=== PATIENT | male | born 1955 | race Caucasian/White ===

== ENCOUNTER 2022-08-28 18:21 | Emergency (ER) | payer MEDICARE, SELFPAY ==
[2022-08-28 18:22] VITALS: BP 143/117; PULSE 117; RESP 20; TEMP 36.8; O2SAT 95; BMI 40.6
--- NOTE | 2022-08-28 18:27 | PC.NURSE ---
PT IS IN TRIAGE ROOM, TOOK VITALS SIGN AND HT, WT FOR NURSE.. CHARGE NURSE IN THERE NOW SPEAKING WITH PT TO FIND OUT WHATS GOING ON
[2022-08-28 18:45] VITALS: BP 102/70; PULSE 103
--- NOTE | 2022-08-28 18:46 | PC.NURSE ---
RETOOK PT BP, LET HIM KNOW WE WERE WORKING TO GET DISCHARGES OUT AND GET HIM BACK [facility]
--- NOTE | 2022-08-28 18:50 | HMH.EDGENADL ---
Discharge Plan Disposition Chief Complaint: PAIN Referrals Follow up/Referrals: Skip Samuels [Primary Care Provider] - See instructions Clinical Impressions Clinical Impression: Acute pain of left hip Discharge ED Provider: Guzman Emmanuel General Adult HPI General Chief complaint: PAIN Stated complaint: pulled groin muscle Time Seen by Provider: 08/28/22 18:50 History of Present Illness HPI narrative: Patient is a 66-year-old male presenting after he pulled my left groin . Patient states that he was changing a tire this happened Friday and Friday and he strained his left groin and subsequently felt a pop and has been unable to lift his left hip and move it with internal/external rotation has been having difficulty with bearing weight as well. Patient has had significant swelling and bruising down his groin area as well. [facility] Disclaimer: The information contained in this section may have been updated after the patient was seen, as this information can be updated by other users. Social History Smoking Status: Never smoker alcohol intake: never current occupational status: other Travel in the last 8 weeks: None ROS Obtained: Yes All systems reviewed & no additional complaints except as documented Physical Exam General General appearance: alert Respiratory Respiratory exam: Present normal lung sounds bilaterally; Absent respiratory distress Cardiovascular Cardiovascular exam: Present regular rate; Absent tachycardia Neurological Exam Neurological exam: Present alert and oriented X3 Medical Decision Making Erick Inquiry Pt receiving controlled substance: No Vital Signs: 08/28/22 18:45 08/28/22 18:22 Temperature 98.3 F Temperature Source Oral Pulse Rate 103 H Pulse Rate [Left Radial] 117 H Respiratory Rate 20 Blood Pressure 102/70 L Blood Pressure [Right Arm] 143/117 H Blood Pressure Mean [Right Arm] 125 Blood Pressure Source [Right Arm] Automatic Cuff Blood Pressure Position [Right Arm] Sitting 02 Sat by Pulse Oximetry 95 Oxygen Delivery Method Room Air Orders (Tests/Meds): ORDERS Category Date Time Status Hip XR left minimum 2 views [XR hip LT 2-3V w/pelvis] Exams 08/28/22 18:52 Completed Stat Medical Decision Narrative: We will get plain films on this gentleman however he is in the triage room currently and I cannot get a good examination and it was able to see some significant ecchymosis while he still has his shorts on. Once room is available to get better examination will reassess. Patient was transitioned to Dr. Devaughn at 8 PM and still is awaiting a room for further examination. Critical Care Time Critical Care Time Critical Care Time: No Attestation: On , the high probability of a clinically significant, sudden or life threatening deterioration of the following system(s) required my full and direct attention, intervention and personal management. The time I documented below is in addition to time spent performing reported procedures but includes the following listed in this critical care notation.
--- NOTE | 2022-08-28 18:51 | PC.NURSE ---
DR SKELTON IS SEEING PT IN TRIAGE
--- NOTE | 2022-08-28 18:52 | XR_ITS ---
PROCEDURE INFORMATION: Exam: XR Left Hip Exam date and time: 08/28/2022 6:59 PM Age: 66 years old Clinical indication: Hip pain; Left hip; Additional info: Left hip pain TECHNIQUE: Imaging protocol: Radiologic exam of the left hip. Views: 2 or 3 views hip with pelvis when performed. COMPARISON: No relevant prior studies available. FINDINGS: Tubes, catheters and devices: Stimulator unit projects in the right mid abdominal region. Bones/joints: Osteopenia. No gross fractures are identified. Sensitivity is limited by positioning, with suboptimal internal rotation of the hip on the AP view. No dislocation. Lumbar laminectomy and fusion without gross hardware complication. Soft tissues: No gross soft tissue abnormalities. IMPRESSION: 1. No acute findings. 2. Exam sensitivity limited by positioning.
--- NOTE | 2022-08-28 19:15 | PC.NURSE ---
UPDATED PT STILL WAITING FOR A ROOM TO DISCHARGE AND LET ME THEM KNOW WE HAVE TO KEEP ONE ROOM OPEN AT ALL TIMES INCASE OF EMS OR ETC, PT ALSO JUST ARRIVED BACK TO TRIAGE ROOM FROM XRAY
--- NOTE | 2022-08-28 20:09 | CT_ITS ---
PROCEDURE INFORMATION: Exam: CT Abdomen And Pelvis With Contrast Exam date and time: 08/28/2022 9:21 PM Age: 66 years old Clinical indication: Abdominal pain; Prior surgery; Surgery date: 6+ months; Surgery type: Lumbar TECHNIQUE: Imaging protocol: Computed tomography of the abdomen and pelvis with contrast. Radiation optimization: All CT scans at this facility use at least one of these dose optimization techniques: automated exposure control; mA and/or kV adjustment per patient size (includes targeted exams where dose is matched to clinical indication); or iterative reconstruction. Contrast material: ISOVUE; Contrast volume: 75 ml; Contrast route: IV; REPORTING DATA: Count of CT and Cardiac NM exams in prior 12 months: This patient has received 0 known CTs and 0 known cardiac nuclear medicine studies in the 12 months prior to the current study. COMPARISON: CR XR HIP LT 2-3V W/PELVIS 08/28/2022 6:59 PM FINDINGS: Lungs: Granulomatous calcification in the peripheral right lung base. Mild dependent atelectasis in the lung bases. Heart: Heart size normal. Mild coronary artery calcification. Mediastinal space: The visualized distal esophagus is largely contracted without gross abnormality. Liver: Granulomatous calcification in the liver. Normal contour. No mass lesions. No intrahepatic biliary ductal dilatation. Gallbladder and bile ducts: Normal. No calcified stones. No ductal dilation. Pancreas: Moderate fatty atrophy of the pancreas without acute abnormality. No pancreatic ductal dilatation. Spleen: Splenomegaly measuring 15.8 cm. No focal splenic lesions. Adrenal glands: Normal. No adrenal mass. Kidneys and ureters: No acute abnormalities. No hydronephrosis or hydroureter. No urinary tract stones are identified. There is a low-density circumscribed left renal cortical lesion suggesting renal cyst for which no further imaging evaluation is required. Stomach and bowel: The stomach is largely contracted. The small bowel is nondilated with no gross abnormality. No acute colonic abnormalities. Appendix: The appendix is normal in caliber and demonstrates no evidence of appendicitis. Intraperitoneal space: No free fluid or air. Vasculature: No acute process. No abdominal aortic aneurysm. Lymph nodes: No adenopathy. Urinary bladder: The rightward dome of the bladder protrudes slightly into the neck of the fatty right inguinal hernia. Reproductive: Mildly enlarged prostate. Bones/joints: L2-S1 laminectomy and fusion. Left S1 pedicle screw is broken at the midportion. Chronic appearing severe inferior endplate compression deformity of L1 with moderate posteroinferior chronic spurring or retropulsion measuring up to 5 mm AP and contributing to moderate-severe canal stenosis. Severe bilateral foraminal stenosis L1-L2. There is also left foraminal stenosis which is moderate-severe at L2-L3 and L3-L4, and moderate at L5-S1. There is right foraminal stenosis which is moderate at L2-L3, mild at L3-L4 and L4-L5, and moderate-severe at L5-S1. Bilateral bridging osteophytes across the anterior SI joints bilaterally. No hip fracture. Soft tissues: Spinal stimulator unit in the posterior right lower back subcutaneous fat with dorsal stimulator leads in the lower thoracic spinal canal, without gross hardware complication. Asymmetric muscular swelling involving the left pectineus and adductor musculature in the anteromedial left hip, favor traumatic muscular edema, with minimal hyperdense 3 x 1 cm hematoma along the deep margin of the proximal gracilis. If there is no history of trauma or there are clinical findings suspicious for infection, consider the pos
--- NOTE | 2022-08-28 20:09 | CT_ITS ---
PROCEDURE INFORMATION: Exam: CT Left Lower Extremity Without Contrast, Hip Exam date and time: 08/28/2022 9:18 PM Age: 66 years old Clinical indication: Pain; Hip; Left; Patient HX: PT felt a pop in his groin after he bent over a few days ago TECHNIQUE: Imaging protocol: CT of the left lower extremity without contrast was performed. Exam focused on the hip. Radiation optimization: All CT scans at this facility use at least one of these dose optimization techniques: automated exposure control; mA and/or kV adjustment per patient size (includes targeted exams where dose is matched to clinical indication); or iterative reconstruction. REPORTING DATA: Count of CT and Cardiac NM exams in prior 12 months: This patient has received 0 known CTs and 0 known cardiac nuclear medicine studies in the 12 months prior to the current study. COMPARISON: CR XR HIP LT 2-3V W/PELVIS 08/28/2022 6:59 PM FINDINGS: Bones/joints: No fracture. No dislocation. Soft tissues: Muscular swelling involving the left adductor compartment musculature in the anteromedial left hip suggesting traumatic muscular edema versus myositis. Very small 3 x 1 x 1.5 cm intramuscular hematoma suspected between the proximal gracilis and proximal left adductor longus musculature, estimated volume 2.5 mL. Small fatty left inguinal hernia without bowel herniation or features of strangulation. Vasculature: Mild calcific atherosclerosis. Lymph nodes: No adenopathy. IMPRESSION: 1. No hip fracture. 2. Changes in the adductor compartment musculature most consistent with traumatic muscular swelling/edema with a small intramuscular hematoma of about 2.5 mL volume. Correlate clinically to exclude evidence of infection/myositis.
[2022-08-28 20:30] VITALS: BP 154/116; PULSE 108; RESP 18; O2SAT 95
[2022-08-28 20:48] LABS: Microscopic, Urine URINE MICROSCOPIC (MICROSCOPIC)
[2022-08-28 20:50] LABS: Basophils # 0.1 K/mm3 (0-0.2); Basophils % 1.1 % (0.1-2.0); Eosinophils # 0.3 K/mm3 (0.0-0.4); Eosinophils % 2.3 % (0.1-12.0); Hematocrit 46.8 % (42.0-52.0); Hemoglobin 14.9 g/dL (14.1-18.0); Lymphocytes # 2.3 K/mm3 (0.7-4.5); Lymphocytes % 21.3 % (10-50); Mean Corpuscular HGB Conc 31.8 g/dL (31.8-35.4); Mean Corpuscular Hemoglobin 29.9 pg (27.0-31.2); Mean Corpuscular Volume 94.1 fl (80-94); Mean Platelet Volume 8.7 fl (7.4-10.4); Monocytes # 0.5 K/mm3 (0.1-1.0); Neutrophils # 7.5 K/mm3 (1.8-7.8); Neutrophils % 70.4 % (37.0-80.0); Platelet Count 289 K/mm3 (142-424); Red Blood Count 4.97 M/mm3 (4.60-6.20); Red Cell Distribution Width 15.1 % (11.5-17.5); White Blood Count 10.6 K/mm3 (4.8-10.8)
[2022-08-28 20:51] LABS: Appearance,Urine CLEAR (Clear); Bilirubin,Urine Negative (Negative); Blood, Urine Negative (Negative); Color,Urine YELLOW (Yellow); Glucose,Urine (UA) Negative (Negative); Ketones,Urine Negative (Negative); Leukocyte Esterase,Urine Negative (Negative); Nitrate,Urine Negative (Negative); Protein,Urine Negative (Negative); Specific Gravity, Urine 1.025 (1.005-1.030)
[2022-08-28 20:55] LABS: Alanine Aminotransferase 37 U/L (12-78); Albumin Level 4.2 g/dl (3.5-5.0); Albumin/Globulin Ratio 1.4 (1.1-1.8); Alkaline Phosphatase 85 U/L (38-126); Anion Gap 15.2 mEq/L (5-15); Aspartate Amino Transferase 46 U/L (17-59); Bilirubin,Total 0.6 mg/dl (0.2-1.3); Blood Urea Nitrogen 31 mg/dl (9-20); Calcium 8.5 mg/dl (8.4-10.2); Carbon Dioxide 27 mmol/L (22.0-30.0); Chloride 99 mmol/L (98-107); Creatine Kinase 250 U/L (55-170); Creatinine Clearance Estimated 140 mL/min (50-200); Estimated Glomerular Filt Rate 84 ml/min (>60); GFR (African American) 102 ML/MIN (>60); Globulin 3.1 g/dL (1.3-3.2); Glucose 191 mg/dl (74-100); Potassium 4.2 mmoL/L (3.5-5.1); Sodium 137 mmol/L (136-145); Total Protein,Serum 7.3 g/dl (6.3-8.2)
[2022-08-28 20:56] LABS: INR 0.93 (0.9-1.1); Prothrombin Time 10.1 seconds (10.1-12.5)
[2022-08-28 21:00] VITALS: BP 144/78; PULSE 106; RESP 20; O2SAT 96
[2022-08-28 21:30] VITALS: BP 147/70; PULSE 104; RESP 20; O2SAT 95
[2022-08-28 21:49] LABS: Squamous Epithelial Cell,Urine Occasional #/hpf (0-5)
[2022-08-28 23:45] VITALS: BP 147/91; PULSE 104; RESP 16; TEMP 36.7; O2SAT 98
--- NOTE | 2022-08-28 23:45 | HMH.EDGENADL ---
Discharge Plan Disposition Patient Disposition: Home, Self-Care Chief Complaint: PAIN Referrals Follow up/Referrals: Skip Samuels [Primary Care Provider] - See instructions Clinical Impressions Clinical Impression: Acute pain of left hip, Adductor tendinitis of left hip, Intramuscular hematoma Instructions Patient Instructions: DI for Acute Pain -- Adult Discharge ED Provider: Guzman Emmanuel General Adult HPI General Chief complaint: PAIN Stated complaint: pulled groin muscle Time Seen by Provider: 08/28/22 18:50 Mode of Arrival: Ambulatory Source of Information: Patient, Spouse and Medical Record Limitations: No Limitations Description of Symptoms (Recalled from ER Triage Doc. by RN): c/o left groin bruising that occured last week from dragging his foot. He bent over a few days ago to get a bottle of water and heard his groin pop. Has had pain there after History of Present Illness HPI narrative: lt groin bruising has hx of nonwt bearing except with walker heard pop Onset (ago): day(s) Location: left and lower extremity Severity: moderate Associated symptoms: denies other symptoms Related Data Allergies Allergy/AdvReac Type Severity Reaction Status Date / Time Unable to Assess Allergy Verified 08/28/22 20:32 [facility] Disclaimer: The information contained in this section may have been updated after the patient was seen, as this information can be updated by other users. Social History (Updated 08/28/22 @ 19:50 by Guzman Emmanuel MD) Smoking Status: Never smoker alcohol intake: never current occupational status: other Travel in the last 8 weeks: None ROS Obtained: Yes All systems reviewed & no additional complaints except as documented Physical Exam General General appearance: alert Head Head exam: normocephalic Eye Eye exam: Present PERRL and EOMI ENT ENT exam: Present mucous membranes moist Neck Neck exam: Present trachea midline Respiratory Respiratory exam: Absent respiratory distress Cardiovascular Cardiovascular exam: Present regular rate Abdominal Exam Abdominal exam: Present soft exam: Present other (no scrotal swelling and no evid of perineal infection) Extremities Exam Extremities exam: Absent tenderness Back Exam Back exam: Present tenderness Neurological Exam Neurological exam: Present alert and CN II-XII intact Skin Skin exam: Present other (ecchymosis lt upper thigh - no clinicsal evid of dvt ) Lymphatic Lymphatic Findings: no adenopathy Medical Decision Making Medical Records Medical records reviewed: Yes I reviewed the patient's medical records. Erick Inquiry Pt receiving controlled substance: No Vital Signs: 08/28/22 18:45 08/28/22 18:22 08/28/22 20:30 Temperature 98.3 F Temperature Source Oral Pulse Rate 103 H 108 H Pulse Rate [Left Radial] 117 H Respiratory Rate 20 18 Blood Pressure 102/70 L 154/116 H Blood Pressure [Right Arm] 143/117 H Blood Pressure Mean 127 Blood Pressure Mean [Right Arm] 125 Blood Pressure Source [Right Arm] Automatic Cuff Blood Pressure Position [Right Arm] Sitting 02 Sat by Pulse Oximetry 95 95 Oxygen Delivery Method Room Air 08/28/22 21:00 08/28/22 21:30 Temperature Temperature Source Pulse Rate 106 H 104 H Pulse Rate [Left Radial] Respiratory Rate 20 20 Blood Pressure 144/78 H 147/70 H Blood Pressure [Right Arm] Blood Pressure Mean 100 95 Blood Pressure Mean [Right Arm] Blood Pressure Source [Right Arm] Blood Pressure Position [Right Arm] 02 Sat by Pulse Oximetry 96 95 Oxygen Delivery Method Lab Data Lab results reviewed: Yes I reviewed the patient's lab results. Lab Results 08/28/22 20:38: WBC 10.6, RBC 4.97, Hgb 14.9, Hct 46.8, MCV 94.1 H, MCH 29.9, MCHC 31.8, RDW 15.1, Plt Count 289, MPV 8.7, Neut % (Auto) 70.4, Lymph % (Auto) 21.3, Haines % (Auto) 5.0, Eos % (Auto) 2.3, Baso % (Auto) 1.1, Neut # (Auto) 7.5, Lymph # (Auto) 2.3, Haines # (Auto) 0.5, Eos # (Au
== END 2022-08-28 23:54 | disposition home or self-care (01) ==
PROVIDERS: Emergency Medicine; Emergency Provider Student in an Organized Health Care Education/Training Program; PCP Family Medicine
DX: X50.1XXA Overexertion from prolonged static or awkward postures, initial encounter; S70.02XA Contusion of left hip, initial encounter; S76.212A Strain of adductor muscle, fascia and tendon of left thigh, initial encounter
CPT/HCPCS: 73502; 73700; 74177; 80053; 81001; 82550; 85025; 85610; 99284; 99285; Q9967

== ENCOUNTER 2024-12-15 12:08 | Emergency (ER) | payer MEDICARE, SELFPAY ==
[2024-12-15 12:10] VITALS: BP 103/66; PULSE 117; RESP 20; TEMP 36.9; O2SAT 98; BMI 42.5
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
[2024-12-15] MEDS: OXYCODONE 10MG W/APAP 325MG TABLET 1 EACH PO (12:33)
--- OUTSIDE RECORDS SUMMARY | 2024-12-15 12:33 | XMS_ITS | Encounter Summary ---
Author Organization [employer] ([place], [place], [place], [place]) Address [address] [place] [address] Care Team Providers Care Ccna Name Role Phone Unavailable Primary Care Provider Unavailabl e Encounter Details Date Type Department Care Team (Late st Contact Info) Description 05/24/2020 Transcribed Document [facility] [place] Family Medicine [facility] [place] [address] ProviderAntonino MD [address] [place] [address] [id number] Social History Tobacco Use Types Packs/Day Years Used Date Smoking Tobacco: Never Assessed Sex and Gender Information Value Date Recorded Sex Assigned at Not on file Legal Sex Male 2:44 PM CDT Gender Identity Not on file Sexual Orientation Not on file documented as of this encounter Miscellaneous Notes * Cerner Conversion Note - Antonino ProviderMD - 05/24/2020 12:48 PM OPTOMETRY DOCTOR Patient: LUCINDA GONGORA Age: 64 Years Sex: Male : 1955 FOLLOW-UP DATE OF SERVICE: 04/26/2020 CHIEF COMPLAINT: Left-sided low back pain. HISTORY OF PRESENT ILLNESS: The patient is a 64-year-old male who returns to the clinic today with a 25-year history significant for back pain without significant radiation into the lower extremities at this time. The patient has a history of spinal cord stimulator implantation for the lower extremity pain. The patient states that he is doing well with the stimulator at this time. He describes his pain level today as an 8/10 on the numerical pain scale rating. His pain is worse with physical activity, movement, walking and standing. He does get relief with resting, recumbency and medication use from our facility. He is reporting 50% pain relief at this time with the use of MS Contin 30 mg one at bedtime, Percocet 10/325 mg four times daily dosing, Gabapentin 800 mg three times daily dosing, Lactulose 10 g/15 mL twice daily dosing, Robaxin 750 mg four times daily dosing. Nursing intake is reviewed and noted on today's visit this individual is currently 6'0 and weighs 300 lb. HISTORY: Allergies: Sulfa medication, Bactrim. Social History: Marital status: Single. Current work status: The patient does not report occupation at this time. Current tobacco use: Denies. Illicit drug use: Denies. Alcohol use: Denies. Caffeine use: Not reported. Past Medical History: Osteoarthritis. Asthma. Hypertension. Past Surgical History: Cataract surgery. Spinal surgery of the lumbar spine. Spinal surgery of the cervical spine. Spinal cord stimulator trial and subsequent implant. Past Family History: Rheumatoid arthritis. REVIEW OF SYSTEMS: The patient's ten system Review of Systems was reviewed and on today's visit this individual has complaints of the following: General: Negative. Respiratory: Shortness of breath, wheezing, asthma. Neurological: Negative. Gastrointestinal: Acid-reflux. Musculoskeletal: Back pain, muscle weakness, muscle aches and pains. Cardiovascular: Negative. Psychiatric: Negative. HEENT: Negative. Endocrine: Negative. Hematology: Negative. Skin: Negative. Genitourinary: Negative. PHYSICAL EXAMINATION: Constitutional: Conversant and well-nourished. Vital signs were reviewed today. Integumentary: Deferred. HEENT: Deferred. Neck: Deferred. Chest and Lung: Deferred. Cardiovascular: Deferred. Abdomen: Deferred. Peripheral Vascular: Deferred. Neurologic: Deferred. Psychiatric: The patient is alert and oriented to self, time and place today. The patient has a normal mood and affect at today's visit and there is minimal evidence of depression on the depression questionnaire that was completed today. Musculoskeletal: The patient does present with muscle spasms involving the left iliocostalis lumborum muscles with identifiable trigger points and banding noted. ASSESSMENT: 1. Chronic pain syndrome. 2. Lumbar degenerative disc disease. 3. Lumbar spondylosis. 4. 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 5. Lumbar radiculitis, status post spinal cord stimulator implantation. 6. Myositis and myalgia. CURRENT PLAN: I am going to discontinue this individual's Robaxin 750 mg. He states that he had been on Flexeril in the past and had done well with this medication so we will put him back on the Flexeril 10 mg up to three times daily dosing as well as a Medrol Dosepak 4 mg to be used as directed. This individual's other medicines are going to remain unchanged at this time. His DARYN report was appropriate upon review today. We will see the patient back in the clinic in two months for a follow-up appointment. DEVI Jovel/lashae documented in this encounter Plan of Treatment Not on file documented as of this encounter Visit Diagnoses Not on filedocumented in this encounter
--- OUTSIDE RECORDS SUMMARY | 2024-12-15 12:33 | XMS_ITS | Encounter Summary ---
Author Organization [employer] ([place], [place], [place], [place]) Address [address] [place] [address] Care Team Providers Care Supervisor Post Wave Name Role Phone Unavailable Primary Care Provider Unavailabl e Encounter Details Date Type Department Care Team (Late st Contact Info) Description 11/24/2019 Transcribed Document [facility] [place] [facility] [place] [address] ProviderAntonino MD [facility] [place], [place] [id number] Social History Tobacco Use Types Packs/Day Years Used Date Smoking Tobacco: Never Assessed Sex and Gender Information Value Date Recorded Sex Assigned at Not on file Legal Sex Male 2:44 PM CDT Gender Identity Not on file Sexual Orientation Not on file documented as of this encounter Miscellaneous Notes * Cerner Conversion Note - Antonino ProviderMD - 11/24/2019 10:42 AM CDT Patient: LUCINDA GONGORA Age: 63 Years Sex: Male : 1955 FOLLOWUP DATE OF SERVICE: 11/11/2019 CHIEF COMPLAINT: Low back pain. HISTORY OF PRESENT ILLNESS: Mr. Gongora is a 63-year-old male that presents to the clinic with a 20-year history of pain. Today, he is describing low back pain. He states that his pain is increased with activity and decreased with rest. The severity of his pain today is a 5/10 on the pain scale and he states 50% relief with his current medication. We currently prescribe Percocet 10/325 mg one p.o. q.6h, MS Contin 15 mg one p.o. q.h.s., Gabapentin 800 mg one p.o. q.8h and Robaxin 750 mg one p.o. q.6h. Nurse's intake is reviewed. Medication list is reviewed. Fall risk information sheet has been provided. HISTORY: Allergies: Bactrim, Ciprofloxacin, Sulfa. Social History: Marital status: Single. Current work status: Current tobacco use: Denies. Illicit drug use: Denies. Alcohol use: Denies. Past Medical History: Arthritis. Asthma. Heartburn. High blood pressure. Past Surgical History: Eye surgery. Lumbar spine surgery. Cervical spine surgery. Past Family History: Reviewed with the patient and is noted. REVIEW OF SYSTEMS: The patient's ten system Review of Systems was reviewed. General: Negative. Respiratory: Shortness of breath, wheezing, asthma. Neurological: Negative. Gastrointestinal: Acid-reflux. Musculoskeletal: Joint pain/stiffness, neck pain, back pain, muscle aches and pains. Cardiovascular: Leg pain with walking. Psychiatric: Negative. HEENT: Negative. Endocrine: Negative. Hematology: Negative. Skin: Negative. Genitourinary: Negative. VITAL SIGNS: Vital signs are reviewed. BP 172/105 in the left arm and 165/99 in the right arm, heart rate 93, respiratory rate 18, O2 SATs 95% on room air, height 6'0 , weight 300 lb. PHYSICAL EXAMINATION: Constitutional: Conversant and well-nourished. Integumentary: Deferred. HEENT: Deferred Neck: Deferred. Chest and Lung: Deferred. Cardiovascular: Deferred. Abdomen: Deferred. Peripheral Vascular: Deferred Neurologic: Deferred. Musculoskeletal: Able to transition from walking, sitting and standing without difficulty. He ambulates with an antalgic gait and utilizes a cane. Psychiatric: Alert and oriented x3. Normal mood and affect. ASSESSMENT: Stable. 1. Chronic pain syndrome. 2. Lumbar degenerative disc disease. 3. Lumbar spondylosis. 4. Opioid-induced constipation. CURRENT PLAN: The patient will undergo a urine tox screen today to monitor compliance. E-DARYN has been reviewed and is appropriate. We are going to add in Lactulose 10 g/15 mL b.i.d. as needed for constipation and refill the remainder of his medications without changes. We will see this patient back in the clinic in two months. Makayla Paul RN acting as scribe for Elen Beasley APRN. I, Elen Beasley APRN, personally performed the service described in this documentation, as scribed by, Makayla Paul RN in my presence, and it is both accurate and complete. SRF/ss/jk Electronically signed by [facility], [facility] Conversion Solderer Assembler Cerner at 07/15/2022 11:16 AM CDT documented in this encounter Plan of Treatment Not on file documented as of this encounter Visit Diagnoses Not on filedocumented in this encounter
--- OUTSIDE RECORDS SUMMARY | 2024-12-15 12:33 | XMS_ITS | Encounter Summary ---
Author Organization [employer] ([place], [place], [place], [place]) Address [address] [place] [address] Care Team Providers Care Sterile Process Coordinator Name Role Phone Unavailable Primary Care Provider Unavailabl e Encounter Details Date Type Department Care Team (Late st Contact Info) Description 01/25/2020 Transcribed Document [facility] [place] Family Medicine [address] [place] [address] ProviderAntonino MD [address] [place] [id number] Social History Tobacco Use Types Packs/Day Years Used Date Smoking Tobacco: Never Assessed Sex and Gender Information Value Date Recorded Sex Assigned at Not on file Legal Sex Male 2:44 PM CDT Gender Identity Not on file Sexual Orientation Not on file documented as of this encounter Miscellaneous Notes * Cerner Conversion Note - Antonino Mtz MD - 01/25/2020 10:02 AM CDT Patient: LUCINDA GONGORA Age: 64 Years Sex: Male : 1955 FOLLOW-UP DATE OF SERVICE: 01/06/2020 CHIEF COMPLAINT: Back pain. HISTORY OF PRESENT ILLNESS: The patient is a 64 y/o male who returns to the clinic for follow-up on his 20+ year history of low back pain. He rates his pain as 6/10 on the pain scale. Quality is numbness and tingling and the pain is occasional. He gets 50% relief with his current medication. His pain is increased with activity and decreased with lying down and pain medication. He states his MS Contin worked great at first, but it is starting to lose its effectiveness at night and he is waking up in more pain than he was. Fall risk info sheet has been provided. SOCIAL HISTORY: Allergies: No known drug allergies. Marital status: The patient is single. Current work status: Not answered. Illicit drug use: Denies. Alcohol use: Denies. Current tobacco use: Denies. Caffeine use: Not answered. Past Medical History: Arthritis. Asthma. Heartburn and GERD. High blood pressure. Past Surgical History: Eyes. Spinal surgery of the back. Spinal surgery of the neck. Past Family History: Rheumatoid arthritis. Thyroid disease. Diabetes. Acid reflux. REVIEW OF SYSTEMS: Complete ten system review was performed and noted to be positive for the following: General: Negative. Respiratory: Shortness of breath, wheezing, asthma. Neurological: Numbness and tingling. Gastrointestinal: Acid reflux. Musculoskeletal: Joint pain, stiffness, neck pain, back pain, muscle aches and pains. Cardiovascular: Leg pain with walking. Psychiatric: Negative. HEENT: Negative. Endocrine: Negative. Hematology: Negative. VITAL SIGNS: Vital signs are reviewed. BP 182/118, recheck 189/115, the last visit 172/105. He is asymptomatic and his primary care has been adjusting his blood pressure medication. He follows up this week. Heart rate 91, respiratory rate 22, O2 SATs 96%, height 6???0?? , weight 305 lbs. PHYSICAL EXAMINATION: Constitutional: The patient is freely conversant, no acute distress. Integumentary: Deferred. HEENT: Deferred. Neck: Deferred. Chest and Lung: Deferred. Cardiovascular: Deferred. Abdomen: Deferred. Peripheral Vascular: Deferred Neurologic: Deferred. Psychiatric: Alert and oriented x 3 with normal mood and affect. He scored a 3 on the depression questionnaire. Musculoskeletal: Deferred. Established patient exam is deferred. DIAGNOSTIC STUDIES: Not present. MEDICAL DECISION MAKING: The patient's DARYN has been reviewed and the patient's tox screen on 11/10 is reviewed and both are appropriate. Patient's medications are reviewed, see patient's file. ASSESSMENT: Stable. 1. Chronic pain syndrome. 2. Lumbar degenerative disc disease. 3. Lumbar spondylosis. 4. Opioid induced constipation. PROCEDURE/TEST ORDERED: Not present. CURRENT PLAN: I talked to Mr. Gongora about the possibility of increasing his MS Contin to 30 mg at night in the future, especially with winter coming on. He asked if we could do 20 mg and I explained that the 20 mg is only available in a trade name and not a generic and it is very expensive. We will reevaluate this at the next visit. I am going to continue him on his Percocet 10 mg every 6 hours, MS Contin 15 mg q.h.s., gabapentin 800 mg every 8 hours, Robaxin 75 mg every 6 hours, lactulose 10 grams per 15 ml every 12 hours p.r.n. His morphine equivalent right now is 75. If we were to increase him, it would be 90. He is in agreement with the above plan. We will see him back in follow-up in two months. Mireille Ortiz M.D. SHARATH/girish documented in this encounter Plan of Treatment Not on file documented as of this encounter Visit Diagnoses Not on filedocumented in this encounter
--- OUTSIDE RECORDS SUMMARY | 2024-12-15 12:33 | XMS_ITS | Referral Summary ---
Author Organization [employer] ([place], [place], [place], [place]) Address [address] [place] [address] Care Team Providers Care Manager People Name Role Phone Unavailable Primary Care Provider Unavailabl e Social History Tobacco Use Types Packs/Day Years Used Date Smoking Tobacco: Never Assessed Sex and Gender Information Value Date Recorded Sex Assigned at Not on file Legal Sex Male 2:44 PM CDT Gender Identity Not on file Sexual Orientation Not on file Plan of Treatment Not on file
--- OUTSIDE RECORDS SUMMARY | 2024-12-15 12:33 | XMS_ITS | Encounter Summary ---
Author Organization [employer] ([place], [place], [place], [place]) Address [address] [place] [address] Care Team Providers Care Customer Care Associate Name Role Phone Unavailable Primary Care Provider Unavailabl e Encounter Details Date Type Department Care Team (Late st Contact Info) Description 03/27/2020 Transcribed Document [facility] [place] Family Medicine [address] [place] [address] ProviderAntonino MD [address] [place] [id number] Social History Tobacco Use Types Packs/Day Years Used Date Smoking Tobacco: Never Assessed Sex and Gender Information Value Date Recorded Sex Assigned at Not on file Legal Sex Male 2:44 PM CDT Gender Identity Not on file Sexual Orientation Not on file documented as of this encounter Miscellaneous Notes * Cerner Conversion Note - Antonino ProviderMD - 03/27/2020 3:45 PM GROUND CREW SUPERVISOR Patient: LUCINDA GONGORA Age: 64 Years Sex: Male : 1955 FOLLOW-UP DATE OF SERVICE: 03/01/2020 CHIEF COMPLAINT: Low back pain. HISTORY OF PRESENT ILLNESS: This is a 64 y/o male being seen in follow-up with a multi year history of low back pain that goes into the bilateral lower extremities that he overall describes as intermittent, numb, tingling and sharp. The pain is exacerbated with walking, standing and reduced with rest and medication. He currently rates the pain as a 5/10 VAS and reports a 50% reduction with medication. Medication list reviewed. Pertinent medications are noted to be Percocet 10 mg 1 p.o. q 6 h, MS Contin 15 mg 1 p.o. at bedtime. He is inquiring about the possibility of increasing his MS Contin. This had been discussed at previous visits. Gabapentin 800 mg 1 p.o. q 8 h, Robaxin 750 mg 1 p.o. q 6 h and Lactulose which he has a surplus of and does not need a refill today. Nursing intake reviewed. Fall info sheet provided. HISTORY: Allergies: None. Social History: Marital status: Recently single. Current work status: Retired. He will be moving soon. Illicit drug use: Denies. Alcohol use: Denies. Current tobacco use: Denies Caffeine use: Denies Past Medical History: Arthritis Asthma. Heartburn Past Surgical History: Back Neck Stomach Past Family History: Reviewed REVIEW OF SYSTEMS: General: Acid reflux Respiratory: Negative. Neurological: Negative Gastrointestinal: Last bowel movement 03/01, soft. Musculoskeletal: Joint pain, stiffness, back pain, muscle aches and pains. Cardiovascular: Negative Psychiatric: Negative HEENT: Negative. Endocrine: Negative. Hematology: Negative. Skin: Negative. Genitourinary: Negative. VITAL SIGNS: Vital signs are reviewed. BP 184/114; his Primary Care Physician is aware of his elevated blood pressure and is monitoring this, heart rate 96, respiratory rate 22, O2 SATs 98% on room air, height 6???0?? , weight 300 lbs PHYSICAL EXAMINATION: Constitutional: Conversant, no acute distress, well-nourished. Integumentary: Deferred. HEENT: Normocephalic, atraumatic, anicteric. Neck: Deferred. Chest and Lung: Deferred. Cardiovascular: Deferred. Abdomen: Deferred. Peripheral Vascular: Deferred Neurologic: Deferred. Musculoskeletal: Ambulatory with a cane. Able to transition independently. Antalgic gait. Psychiatric: Alert and oriented x 3. Denies suicidal ideation. Normal mood and affect. No signs of impairment. DIAGNOSTIC STUDIES: Not present MEDICAL DECISION MAKING: Stable. ASSESSMENT: 1. Chronic pain syndrome. 2. Lumbar degenerative disc disease. 3. Lumbar spondylosis. PROCEDURE/TEST ORDERED: Not present. CURRENT PLAN: We will go ahead and increase his MS Contin. I am offered to adjust it to 15 mg twice a day or 30 mg at bedtime. He ultimately elected to just do the bedtime dose, so we will adjust it to MS Contin 30 mg 1 p.o. at bedtime. I am also going to give him a Medrol Dose Pack 4 mg take as directed on package with one refill. We discussed this as an additional tool in his tool box to assist with acute on chronic pain flares, particularly since he will be moving soon. Questions answered to his satisfaction and he verbalized understanding. DARYN reviewed. Return to the clinic in two months. RAMON Duval/yarelis documented in this encounter Plan of Treatment Not on file documented as of this encounter Visit Diagnoses Not on filedocumented in this encounter
--- OUTSIDE RECORDS SUMMARY | 2024-12-15 12:34 | XMS_ITS | Encounter Summary ---
Author Organization [employer] ([place], [place], [place], [place]) Address [address] [place] [address] Care Team Providers Care Fiber Worker Name Role Phone Unavailable Primary Care Provider Unavailabl e Encounter Details Date Type Department Care Team (Late st Contact Info) Description 12/21/2018 Transcribed Document [facility] [place] Family Medicine [facility] [place] [address] ProviderAntonino MD [address] [place] [id number] Social History Tobacco Use Types Packs/Day Years Used Date Smoking Tobacco: Never Assessed Sex and Gender Information Value Date Recorded Sex Assigned at Not on file Legal Sex Male 2:44 PM CDT Gender Identity Not on file Sexual Orientation Not on file documented as of this encounter Miscellaneous Notes * Cerner Conversion Note - Antonino ProviderMD - 12/21/2018 2:09 PM CDT Patient: LUCINDA GONGORA Age: 63 Years Sex: Male : 1955 DATE OF SERVICE: 12/18/2018. PROCEDURE: Trigger point injections. PREOPERATIVE DIAGNOSIS: 1. Chronic pain syndrome. 2. Myositis myalgia. 3. Left gluteus muscle pain. POST PROCEDURE DIAGNOSIS: Same as above. PROCEDURE PERFORMED BY: Mikie Echevarria PA-C ANESTHESIA: 0.5% bupivacaine. COMPLICATIONS: None. INDICATIONS: The patient is a 63 year old male who returns to the clinic today to undergo trigger point injections to the left gluteus medius muscle which had been problematic for this individual for several months. He describes the pain as being worse with walking, standing, going up the stairs. After his last follow-up appointment a physical examination was done and he was found to have trigger points of the left gluteus medius muscle insertion points to the hip. He is here today for the injections. PROCEDURE SUMMARY: After reviewing the patient's chart, we explained the risks versus benefits of trigger point injection today. The patient has signed the appropriate consent forms. The patient was then placed in a prone position and draped in a sterile fashion. After identifying the patient's posterior superior iliac spine, palpation was then done to identify three of the trigger points of the insertion points for the left gluteus medius muscle with obvious banding. Skin prep was utilized to sterilize this region. Utilizing a 10 mL syringe and a 25 gauge needle a total of 10 mL of 0.5% bupivacaine was aspirated. The 25 gauge needle was then inserted into each of the above mentioned trigger point sites. After ensuring the absence of blood and/or air through aspiration, a total of 2 mL was injected at each location site. A short needling procedure was done in each location. Patient tolerated the procedure well. There was minimal blood loss from the procedure. PLAN: The patient will undergo ice massage for the duration of the 20 minutes prior to going to bed this evening. We will see the patient back in clinic at his next scheduled follow-up appointment day. The patient is understanding and agrees with the above plans. Mikie Echevarria PA-C BR:bernabe documented in this encounter Plan of Treatment Not on file documented as of this encounter Visit Diagnoses Not on filedocumented in this encounter
--- OUTSIDE RECORDS SUMMARY | 2024-12-15 12:34 | XMS_ITS | Encounter Summary ---
Author Organization Healthcare Address [address] [place] [address] Care Team Providers Care Surveyor Geophysical Prospecting Name Role Phone Yon Merlos APRN Primary Care Provider [phone] Ebonie De La Garza APRN Primary Care Provider [phone] Jahaira Ocampo MD Primary Care Provider [phone] Skip Samuels MD Primary Care Provider [phone] Reason for Visit * Reason Comments Med Refill Encounter Details Date Type Department Care Team (Late st Contact Info) Description 01/07/2023 Refill [facility] Family and Community Medicine [address], [address] [place] [address] Yon Merlos APRN [address] [place] [address] Exacerbation of asthma, unspecified asthma severity, unspecified whether persistent Social History Tobacco Use Types Packs/Day Years Used Date Smoking Tobacco: Never Smokeless Tobacco: Never Alcohol Use Standard Drinks/Week Comments No 0 (1 standard drink = 0.6 oz pure alcohol) Alcoholic Drinks/day: Denies alcohol consumption AUDIT-C Answer Date Recorded Q1: How often do you have a drink containing alcohol? Never 07/27/2021 Q2: How many drinks containi ng alcohol do you have on a typical day when you are drinking? Patient does not drink Q3: How often do you have si x or more drinks on one occasion? Never 07/27/2021 PHQ-2 Answer Date Recorded Patient Health Questionnaire-2 Score 0 07/02/2022 PHQ-2A Answer Date Recorded Patient Health Questionnaire-2 Score 0 07/02/2022 Sex and Gender Information Value Date Recorded Sex Assigned at Not on file Legal Sex Male 7:38 PM EDT Gender Identity Not on file Sexual Orientation Not on file documented as of this encounter Miscellaneous Notes * Telephone Encounter - Mable Dong - 01/08/2023 9:27 AM EDT Patient notified to schedule appointment. documented in this encounter Plan of Treatment Upcoming Encounters Date Type Department Care Team (Late st Contact Info) Description 01/10/2025 9:40 AM EDT Office Visit [facility] Orthopaedic Surgery & Sports Medicine [address], [address] [place] [address] Nilson Walker MD [address] [facility] [address] [place] [address] documented as of this encounter Visit Diagnoses Diagnosis Exacerbation of asthma, unspecified asthma severity, unspecified whether persistent documented in this encounter Additional Health Concerns Assessment Noted Time A fall risk assessment has been complete d for the patient 01/02/2023 9:53 AM EDT A Body Mass Index follow-up plan has been documented for the patient 01/02/2023 11:23 AM EDT documented as of this encounter Care Teams Surveyor Geophysical Prospecting Relationship Specialty Start Date End Date Yon Merlos APRN [address] [facility] [address] [place] [address] PCP - General Family Medicine 08/02/21 02/25/23 Ebonie De La Garza APRN [address] [facility] [address] [place] [address] PCP - General Family Medicine 02/26/23 08/04/23 Jahaira Ocampo MD [address] [place] [address] [id number] PCP - General Family Medicine 08/05/23 06/21/24 Skip Samuels MD [address] [place] [address] PCP - General 06/22/24 documented as of this encounter
--- OUTSIDE RECORDS SUMMARY | 2024-12-15 12:34 | XMS_ITS | Encounter Summary ---
Author Organization [employer] ([place], [place], [place], [place]) Address [address] [place] [address] Care Team Providers Care High Pressure Boiler Operator Name Role Phone Unavailable Primary Care Provider Unavailabl e Encounter Details Date Type Department Care Team (Late st Contact Info) Description 04/02/2019 Transcribed Document [facility] Family Medicine [facility] [place] [address] ProviderAntonino MD [address] [place] [id number] Social History Tobacco Use Types Packs/Day Years Used Date Smoking Tobacco: Never Assessed Sex and Gender Information Value Date Recorded Sex Assigned at Not on file Legal Sex Male 2:44 PM CDT Gender Identity Not on file Sexual Orientation Not on file documented as of this encounter Miscellaneous Notes * Cerner Conversion Note - Antonino ProviderMD - 04/02/2019 3:20 PM PROGRAM THERAPIST Patient: LUCINDA GONGORA Age: 63 Years Sex: Male : 1955 DATE OF SERVICE: 03/22/2019. CHIEF COMPLAINT: Low back pain. HISTORY OF PRESENT ILLNESS: This is a 63 year old male being seen in follow-up with a 15+ year history of low back pain that he describes as intermittent, aching, radiating, numbness, tingling, dull and sharp. The pain is exacerbated with movement, especially walking, reduced with lying down, rest, and medication. The patient currently rates the pain as 5/10 VAS and reports a 50% reduction with medication. Med list reviewed. Pertinent meds noted to be Percocet 10 mg. one p.o. q.6 hours, Gabapentin 800 mg. one p.o. q.8 hours, Robaxin 750 mg. one p.o. q6 hours. Nursing intake is reviewed. Fall risk information sheet has been provided. HISTORY: ALLERGIES: BACTRIM, CIPRO, SULFA. Social history: Marital status: . Current work status: Disabled. Current tobacco use: Denied. Illicit drug use: Denied. Alcohol use: Denied. Caffeine use: Enjoys caffeine. PAST MEDICAL HISTORY: Arthritis. Asthma. PAST SURGICAL HISTORY: Eyes. Back. Neck. PAST FAMILY HISTORY: Rheumatoid. Diabetes. REVIEW OF SYSTEMS: General: Negative. Respiratory: Negative. Neurological: Negative. Gastrointestinal: Last bowel movement 03/22, soft. Musculoskeletal: Back pain. Muscle aches and pains. Cardiovascular: Negative. Psychiatric: Negative. HEENT: Negative. Endocrine: Negative. Hematology: Negative. Skin: Negative. Genitourinary: Negative. VITAL SIGNS: Vital signs are reviewed. B/P 122/86, heart rate 101, respiratory rate 18, O2 SATs 97% on room air, height 6???0?? , weight 300 lb. PHYSICAL EXAMINATION: Constitutional: Conversant, no acute distress, well-nourished. General: Deferred. Integumentary: Deferred. HEENT: Normocephalic. Neck: Deferred. Chest and Lung: Deferred. Cardiovascular: Deferred. Abdomen: Deferred. Peripheral Vascular: Deferred Neurologic: Deferred. Psychiatric: A&O x3. PHQ-9 score of 3. Normal mood and affect. No signs of impairment. Musculoskeletal: Able to transition independently from walking, sitting and standing without overt difficulty. Ambulatory with a cane. Mildly antalgic gait. DIAGNOSTIC STUDIES: Not present. MEDICAL DECISION MAKING: Stable. ASSESSMENT: 1. Chronic pain syndrome. 2. Lumbar spondylosis. 3. Lumbar degenerative disc disease. 4. Myositis and myalgia. PROCEDURE/TEST ORDERED: Not present. CURRENT PLAN: The patient received a urine Tox. screen today. Continue current medication. DARYN reviewed. Questions answered to his satisfaction, verbalized understanding. Return to the clinic in two months. Elen Beasley APRN SF:bernabe documented in this encounter Plan of Treatment Not on file documented as of this encounter Visit Diagnoses Not on filedocumented in this encounter
--- OUTSIDE RECORDS SUMMARY | 2024-12-15 12:34 | XMS_ITS | Encounter Summary ---
Author Organization [employer] ([place], [place], [place], [place]) Address [address] [place] [address] Care Team Providers Care Film Painter Name Role Phone Unavailable Primary Care Provider Unavailabl e Encounter Details Date Type Department Care Team (Late st Contact Info) Description 05/27/2019 Transcribed Document [facility] [place] [facility] [place] [address] ProviderAntonino MD [address] [place] [address] [id number] Social History Tobacco Use Types Packs/Day Years Used Date Smoking Tobacco: Never Assessed Sex and Gender Information Value Date Recorded Sex Assigned at Not on file Legal Sex Male 2:44 PM CDT Gender Identity Not on file Sexual Orientation Not on file documented as of this encounter Miscellaneous Notes * Cerner Conversion Note - Antonino ProviderMD - 05/27/2019 10:09 AM COIL INSPECTOR Patient: LUCINDA GONGORA Age: 63 Years Sex: Male : 1955 FOLLOW-UP Date of Service: 05/24/2019 CHIEF COMPLAINT: Low back pain, bilateral leg pain. HISTORY OF PRESENT ILLNESS: The patient is a 63 y/o male who returns to the Clinic today with a greater than 15 year history significant for both low back pain and bilateral leg pain with the left leg being worse than the right leg. The patient states the pain is worse with activities around the home such as cleaning house, yard work, etc. He does get 50% pain relief with the use of Percocet 10/325 mg four times daily dosing, Gabapentin 800 mg three times daily dosing, Robaxin 750 mg four times daily dosing, His pain level today is a 6/10 on the numerical pain scale rating. Nursing intake was reviewed and noted on today's visit. VITAL SIGNS: Vital signs are reviewed today. B/P: 110/80; Heart rate: 127; Respirations: 10; Oxygen saturation is 96% on room air; Height 6???0?? , weight 300 lbs HISTORY: Allergies: Bactrim, Sulfa and Ciprofloxacin. Social History: Marital status: This individual is currently single. Current work status: He does not list occupation at this time. Illicit drug use: Denies. Current tobacco use: Denies. Alcohol use: Denies. Caffeine use: Not reported. Past Medical History: Osteoarthritis Asthma. Past Surgical History: Spinal surgery, lumbar spine Spinal surgery, cervical spine Past Family History: Rheumatoid arthritis Type 2 diabetes. Acid reflux disease. REVIEW OF SYSTEMS: The patient's ten system review of systems was reviewed and on today's visit this individual has complaints of the following: General: Negative. Respiratory: Wheezing and asthma Neurological: Negative. Gastrointestinal: Acid reflux. Musculoskeletal: Joint pain, stiffness, neck pain, back pain, muscle weakness. Cardiovascular: Negative. Psychiatric: Negative. HEENT: Negative. Endocrine: Negative. Hematology: Negative. PHYSICAL EXAMINATION: Constitutional: The patient is conversant and well-nourished. Vital signs are reviewed today. Integumentary: Deferred. HEENT: Deferred. Neck: Deferred. Chest and Lung: Deferred. Cardiovascular: Deferred. Abdomen: Deferred. Peripheral Vascular: Deferred Neurologic: Deferred. Musculoskeletal: Deferred. Psychiatric: The patient is alert and oriented to self, time, and place today. The patient has a normal mood and affect on today's visit and there is minimal evidence of depression on the depression questionnaire that was completed today. DIAGNOSTIC STUDIES: Not present MEDICAL DECISION MAKING: Stable. ASSESSMENT: 1. Chronic pain syndrome. 2. Lumbar degenerative disc disease. 3. Lumbar spondylosis. 4. Myositis and myalgia. PROCEDURE/TEST ORDERED: Not present. CURRENT PLAN: I am going to continue Mr. Gongora on his current medication regimen from our facility at this time. His DARYN report was appropriate upon review today. We will see the patient back in the Clinic in two months for a follow-up appointment. He did request going up to the Roxicodones which we are not going to do. It is noted that this individual has been monitored for compliance for quite some time with pill counts being done as well as urine tox screens randomly. We will continue to monitor this individual closely. DEVI Jovel/yarelis Electronically signed by Interface, [facility] Conversion Nurse Sitter Cerner at 07/15/2022 10:48 AM CDT documented in this encounter Plan of Treatment Not on file documented as of this encounter Visit Diagnoses Not on filedocumented in this encounter
--- OUTSIDE RECORDS SUMMARY | 2024-12-15 12:34 | XMS_ITS | Clinical Summary ---
Author Organization Healthcare Address [address] [place] [address] Care Team Providers Care Package Line Operator Name Role Phone Skip Samuels MD Primary Care Provider [phone] Allergies Active Allergy Reactions Criticality Noted Date Comments Sulfacetamide Itching,Unknown - Denys landers states they do not know rxn details Medium 05/30/2015 Medications theophylline ER (Jaycob-Dur) 300 MG 12 hr tablet 2 Active tamsulosin (Flomax) 0.4 MG 24 hr capsule TAKE (1) CAPSULE BY MOUTH ONCE A DAY. 2 Active pregabalin (Lyrica) 150 MG capsule TAKE 1 CAPSULE BY MOUTH EVERY 12 HOURS 2 Active pantoprazole (Protonix) 40 MG EC tablet 2 Active oxyCODONE-acetam inophen (Percocet) 10-325 MG tablet Take 1 tablet by mouth every 6 (six) hours. 2 Active losartan-hydroCH LOROthiazide (Hyzaar) 100-12.5 MG tablet Take 1 tablet by mouth 1 (one) time each day. 2 Active morphine CR (MS Contin) 30 MG 12 hr tablet Take 30 mg by mouth every night. 2 Active ipratropium-albu terol (Duo-Neb) 0.5-2.5 mg/3 mL nebulizer solution USE 1 VIAL FOUR TIMES DAILY 2 Active cyclobenzaprine (Flexeril) 10 MG tablet Take 10 mg by mouth every 8 (eight) hours. 2 Active diclofenac (Voltaren) 75 MG EC tablet Take 75 mg by mouth 1 (one) time each day. 2 Active furosemide (Lasix) 20 MG tablet Take 20 mg by mouth 1 (one) time each day. 2 Active budesonide-formo terol (Symbicort) 160-4.5 MCG/ACT inhaler 5 Active tiZANidine (Zanaflex) 4 MG capsule Take 1 capsule (4 mg total) by mouth 3 (three) times a day if needed for muscle spasms. 60 capsule 2 Active azithromycin (Zithromax) 250 MG tablet 3 Active albuterol 108 (90 Base) MCG/ACT inhalerIndicatio ns:Exacerbation of asthma, unspecified asthma severity, unspecified whether persistent INHALE 2 PUFFS BY MOUTH FOUR TIMES DAILY NEEDED FOR WHEEZING OR SHORTNESS OF BREATH 18 g 1 3 Active Active Problems Problem Noted Date Diagnosed Date Osteoarthritis of bilateral glenohumeral joints 10/08/2023 Rotator cuff arthropathy of both shoulders 10/07 Chronic pain of both shoulders 07/27/2021 Assessment & Plan (07/27/2021 2:56 PM EDT): -for years per patient -crepitus, decreased ROM, tenderness bilaterally on exam today -will obtain outside records from previous providers -can image if none recent -ortho referral and pain management referral placed Back pain 06/26/2015 Lower extremity pain, bilateral 06/26/2015 Arthritis 06/05/2015 Asthma 06/05/2015 Hypertension 06/05/2015 Leg pain 06/05/2015 Encounters Date Type Department Care Team Description 10/08/2024 11:10 AM EDT Office Visit [facility] Orthopaedic Surgery & Sports Medicine [address], [address] [place] [address] Nilson Walker MD Rotator cuff arthropathy of both shoulders (Primary Dx); Osteoarthritis of bilateral glenohumeral joints; Chronic pain of both shoulders 10/08/2024 Travel from Last 3 Months Immunizations Immunization Administration Dates Next Due Influenza, injectable, quadr ivalent, preservative free 01/29/2019,01/07/2018,08/03/2015 Family History Medical History Relation Name Comments Diabetes Father Diabetes Mother Diabetes Sister Relation Name Status Comments Father Mother Sister Social History Tobacco Use Types Packs/Day Years [...] on file Sexual Orientation Not on file Last Filed Vital Signs Vital Sign Reading Time Taken Comments Blood Pressure 104/67 10/08/2024 10:52 AM EDT Pulse 119 07/02/2022 10:38 AM EDT Temperature - - Respiratory Rate - - Oxygen Saturation 96% 07/02/2022 10:38 AM EDT Inhaled Oxygen Concentration - - Weight 138 kg (305 lb) 10/08/2024 10:52 AM EDT Height 175.3 cm (5' 9 ) 10/08/2024 10:52 AM EDT Body Mass Index 45.04 10/08/2024 10:52 AM EDT Plan of Treatment Upcoming Encounters Date Type Department Care Team (Late st Contact Info) Description 01/10/2025 9:40 AM EDT Office Visit [facility] Orthopa[facility] Surgery [facility] Sports Medicine [address] [place] [address] Nilson Walker MD [address] [place] [address] Health Maintenance Due Date Last Done Comments [facility]Medic[facility] Annual Wellness (AWV) 1955 [facility]-/Child/Adol SDOH Screenings 1955 [facility]- SDOH Screenings 12/07/1973 [facility]-Adult SDOH Screenings 12/07/1973 [facility]-DTaP,Tdap,and Td Vaccines (1 - Tdap) 12/07/1974 CT Colonography 12/07/2000 Colonoscopy 12/07/2000 FIT-DNA 12/07/2000 FIT 12/07/2000 FOBT 12/07/2000 Sigmoidoscopy 12/07/2000 [facility]-Colorectal Cancer Screening 12/07/2000 [facility]-Zoster Vaccines (1 of 2) 12/07/2005 [facility]-RSV Vaccine: 60+ Years or (1 - Risk 60-74 years 1-dose series) 2015 [facility]-Depression Screening 07/03/2023 07/02/2022 DLY-UBISP-80 Vaccine ( season) 2024 08/18/2020, 07/21/2020 [facility]-Influenza Vaccine (#1) 11/29/202401/16, 01/29/2019, 01/07/2018, Additional history exists [facility]-Hepatitis C Screening Completed 07/28/2015 [facility]-Pneumococcal Vaccine: 50+ Years Completed 01/16/2022 [facility]-Obesity Intervention Completed 025, 07/09/2024, 04/09/2024, Additional history exists HPV Vaccines Aged Out No longer eligi ble based on patient's age to complete this topic [facility]-HIB Vaccines Aged Out No longer e ligible based on patient's age to complete this topic [facility]-Hepatitis A Vaccines Aged Out No longer eligible based on patient's age to complete this topic [facility]-IPV Vaccines Aged Out No longer e ligible based on patient's age to complete this topic [facility]-Rotavirus Vaccines Aged Out No lo nger eligible based on patient's age to complete this topic Procedures Procedure Name Priority Date/Time Associated Diagnosis Comments MT ARTHROCENTESIS ASPIR&/INJ MAJOR JT/BURSA W/O US Routine 10/08/2024 11:10 AM EDT Rotator cuff arthropathy of both shoulders Osteoarthritis of bilateral glenohumeral joints Chronic pain of both shoulders ACUTE HEPATITIS PANEL Routine 07/28/2015 11:30 AM EDT from Last 3 Months or Most Recently Relevant to Health Maintenance Results * MT ARTHROCENTESIS ASPIR&/INJ MAJOR JT/BURSA W/O US (10/08/2024 11:10 AM EDT) Narrative Nilson Walker MD - 10/08/2024 11:10 AM EDT Nilson Walker MD 10/08/2024 12:06 PM Injection - Large Joint: bilateral subacromial bursa Indications: pain Details: 22 G needle, posterior approach Medications (Right): 20 mg bupivacaine 0.5 %; 40 mg lidocaine 1 %; 80 mg Kenalog-40 40 MG/ML Medications (Left): 20 mg bupivacaine 0.5 %; 40 mg lidocaine 1 %; 80 mg Kenalog-40 40 MG/ML Outcome: tolerated well, no immediate complications After discussing risks and benefits, including but not limited to bleeding, infection and worsening pain, the patient wished to proceed with the procedure today. See procedure note. Post-injection care instructions were provided. Procedure, treatment alternatives, risks and benefits explained, specific risks discussed (Specific risks included flare reaction, increased pain, increased stiffness, injury to surrounding tissues, increased risk of infection, and risk of elevated glucose level.). Consent was given by the patient. Immediately prior to procedure a time out was called to verify the correct patient, procedure, equipment, client support coordinator and site/side marked as required. Patient was prepped and draped in the usual sterile fashion. iNlson Walker MD IN CLINIC/BEDSIDE ORDERABLES F inal Result * Acute Hepatitis Panel (07/28/2015 11:30 AM EDT) Hepatitis B Surf Antigen NEGATIVE Reference Value: Negative SUNQUEST Hepatitis C Antibody NEGATIVE Reference Range: Negative SUNQUEST Hepatitis A Antibody IgM NEGATIVE Reference Value: Negative SUNQUEST External Hepatitis B Core IgM (HBCM) NEGATIVE Reference Value: Negative SUNQUEST 07/28/2015 11:3 0 AM EDT 07/28/2015 11:34 AM EDT Jeanie Neal LAB BLOOD ORDERABLES Final Resul t SUNJOSE from Last 3 Months or Most Recently Relevant to Health Maintenance Insurance [employer] MEDICARE Care Teams Package Line Operator Relationship Specialty Start Date End Date Skip Samuels MD [address] [place] [id number] PCP - General 06/22/24
--- OUTSIDE RECORDS SUMMARY | 2024-12-15 12:34 | XMS_ITS | Encounter Summary ---
Author Organization [employer] ([place], [place], [place], [place]) Address [address] [place] [address] Care Team Providers Care Import Coordinator Name Role Phone Unavailable Primary Care Provider Unavailabl e Encounter Details Date Type Department Care Team (Late st Contact Info) Description 08/01/2019 Transcribed Document [facility] Family Medicine [address] [place] [address] ProviderAntonino MD [address] [place] [id number] Social History Tobacco Use Types Packs/Day Years Used Date Smoking Tobacco: Never Assessed Sex and Gender Information Value Date Recorded Sex Assigned at Not on file Legal Sex Male 2:44 PM CDT Gender Identity Not on file Sexual Orientation Not on file documented as of this encounter Miscellaneous Notes * Cerner Conversion Note - Antonino ProviderMD - 08/01/2019 11:44 AM CDT Patient: LUCINDA GONGORA Age: 63 Years Sex: Male : 1955 FOLLOW-UP Date of Service: 07/19/2019 CHIEF COMPLAINT: Low back pain. HISTORY OF PRESENT ILLNESS: This is a 63 y/o male being seen in follow-up with a 15 year history of low back pain that radiates down bilateral lower extremities that he overall describes as constant, aching, numbness and tingling and sharp. The pain is exacerbated with standing, walking, lifting bending and reduced with rest, heat and medication. He currently rates the pain as a 6/10 VAS and reports a 50% reduction with medication. Medication list reviewed. Pertinent medications are noted to be Percocet 10 mg 1 p.o. q 6 h, Gabapentin 800 mg 1 p.o. q 8 h, Robaxin 750 mg 1 p.o. q 6 h. He states his medication is only lasting him a few hours. He states that he has been spoken to before about possibly having a long acting. He denies any change in condition such as falls, hospitalizations, new injuries, new diagnoses etc. Nursing intake reviewed. Fall info sheet provided. HISTORY: Allergies: Bactrim, Sulfa, Cipro. Social History: Marital status: Single Current work status: Disabled. Illicit drug use: Denies. Alcohol use: Denies. Current tobacco use: Denies. Caffeine use: Denies. Past Medical History: Arthritis Asthma. Heartburn. Hypertension. Past Surgical History: Eyes Back Neck Past Family History: Rheumatoid arthritis Diabetes Acid reflux REVIEW OF SYSTEMS: General: Negative. Respiratory: Negative. Neurological: Negative. Gastrointestinal: Acid reflux Musculoskeletal: Neck pain, back pain, muscle aches and pains. Cardiovascular: Leg pain with walking. Psychiatric: Negative. HEENT: Negative. Endocrine: Negative. Hematology: Negative. Skin: Negative. Genitourinary: Negative. VITAL SIGNS: Vital signs are reviewed. BP 163/101, heart rate 90, respiratory rate 22, O2 SATs 97% on room air, height 6???0?? , weight 300 lbs PHYSICAL EXAMINATION: Constitutional: Conversant, no acute distress, well-nourished. Integumentary: Deferred. HEENT: Normocephalic. Neck: Deferred. Chest and Lung: Deferred. Cardiovascular: Deferred. Abdomen: Deferred. Peripheral Vascular: Deferred Neurologic: Deferred. Musculoskeletal: Ambulatory with a cane. Able to transition independently from walking, sitting, standing. He has an antalgic gait. Psychiatric: Alert and oriented x 3. Denies suicidal ideation. Normal mood and affect. No signs of impairment. DIAGNOSTIC STUDIES: Not present MEDICAL DECISION MAKING: Stable. ASSESSMENT: 1. Chronic pain syndrome. 2. Lumbar degenerative disc disease. 3. Lumbar spondylosis. 4. Myositis and myalgia. PROCEDURE/TEST ORDERED: Not present. CURRENT PLAN: We will go ahead and add some MS Contin 15 mg one p.o. at bedtime. I did discuss with him the role that tolerance plays and encouraged him to perform exercises in his chair even if just isometric to keep some conditioning of the muscles. He will benefit from ongoing reinforcing discussions. Questions answered to his satisfaction and he verbalized understanding. Return to the clinic in two months. RAMON Duval/yarelis Electronically signed by Michelle [facility] Conversion Welcome Wagon Host/Hostess Cerner at 07/15/2022 11:14 AM CDT documented in this encounter Plan of Treatment Not on file documented as of this encounter Visit Diagnoses Not on filedocumented in this encounter
--- OUTSIDE RECORDS SUMMARY | 2024-12-15 12:34 | XMS_ITS | Clinical Summary ---
Author Organization [employer] ([place], [place], [place], [place]) Address [address] [place] [address] Care Team Providers Care Asphalt Paving Foreman Name Role Phone Unavailable Primary Care Provider [...]
--- OUTSIDE RECORDS SUMMARY | 2024-12-15 12:34 | XMS_ITS | Encounter Summary ---
Author Organization [employer] ([place], [place], [place], [place]) Address [address] [place] [address] Care Team Providers Care Director Risk Name Role Phone Unavailable Primary Care Provider Unavailabl e Encounter Details Date Type Department Care Team (Late st Contact Info) Description 01/28/2019 Transcribed Document [facility] [place] Family Medicine [address] [place] [address] ProviderAntonino MD [address] [place] [id number] Social History Tobacco Use Types Packs/Day Years Used Date Smoking Tobacco: Never Assessed Sex and Gender Information Value Date Recorded Sex Assigned at Not on file Legal Sex Male 2:44 PM CDT Gender Identity Not on file Sexual Orientation Not on file documented as of this encounter Miscellaneous Notes * Cerner Conversion Note - Antonino ProviderMD - 01/28/2019 2:52 PM CDT Patient: LUCINDA GONGORA Age: 63 Years Sex: Male : 1955 FOLLOW-UP DATE OF SERVICE: 01/28/2019 CHIEF COMPLAINT: Back pain. HISTORY OF PRESENT ILLNESS: The patient is a 63 y/o male who returns to the clinic for follow-up on his low back pain which radiates into his bilateral legs, his [place], it is sharp and tingling, neck pain that goes to his bilateral shoulders and fingers with numbness and tingling. He rates the pain as 5/10 on the pain scale. Quality is aching, radiating, numbness and tingling and sharp. The pain is constant. He has had the pain for 15 years. He has increased pain with movement and decreased pain with lying down and heat. He gets 50% relief with his current medication. Fall risk info sheet has been provided. SOCIAL HISTORY: Allergies: Sulfa drugs and Cipro Marital status: The patient is Current work status: He is retired Illicit drug use: Denies. Alcohol use: Denies. Current tobacco use: Denies. Caffeine use: Denies. Past Medical History: Arthritis. Asthma. Heartburn. Gastroesophageal reflux disease. High blood pressure Past Surgical History: Eyes Spinal surgery of back Spinal surgery of neck Past Family History: Migraines Rheumatoid arthritis. Thyroid disease. Diabetes Acid reflux. REVIEW OF SYSTEMS: Complete ten system review was performed and noted to be positive for the following: General: Negative. Respiratory: Wheezing, asthma. Neurological: Negative. Gastrointestinal: Negative. Musculoskeletal: Neck pain, back pain, muscle weakness, muscle aches and pains. Cardiovascular: Negative. Psychiatric: Negative. HEENT: Negative. Endocrine: Negative. Hematology: Negative. Skin: Negative. Genitourinary: Negative. VITAL SIGNS: Vital signs are reviewed. BP 116/85, heart rate 130, respiratory rate 18, O2 SATs 94%, height 6???0?? , weight 300 lbs PHYSICAL EXAMINATION: Constitutional: The patient is freely conversant, no acute distress. Integumentary: Deferred. HEENT: Deferred. Neck: Deferred. Chest and Lung: Deferred. Cardiovascular: Deferred. Abdomen: Deferred. Peripheral Vascular: Deferred Neurologic: Deferred. Psychiatric: Alert and oriented x 3 with normal mood and affect. He scored a 5 on the depression questionnaire. His gait is antalgic. He uses a cane. Musculoskeletal: Deferred. Established patient exam is deferred. DIAGNOSTIC STUDIES: Not present MEDICAL DECISION MAKING: DARYN has been reviewed and is appropriate. Patient's medications are reviewed and are listed in the patient's file. ASSESSMENT: Stable. 1. Chronic pain syndrome. 2. Lumbar spondylosis. 3. Lumbar facet arthropathy. 4. Lumbar degenerative disc disease. 5. Myositis and myalgia. 6. Lumbar radiculitis status post spinal cord stimulator implantation. PROCEDURE/TEST ORDERED: Not present. CURRENT PLAN: I am going to continue Mr. Gongora on his current medications of Gabapentin 800 mg q 8 h, Percocet 10 mg q 6 h, Robaxin 750 mg q 6 h. He denies any side effects. He had trigger point injections on 12/18 in his left gluteus muscles that helped for about a month. He would like to repeat them at some point in the future. He had his spinal cord stimulator reprogrammed at last visit and this continued to work very well and much better since the reprogramming. He is in agreement with the above plan. We will see him back in follow-up in two months. Mireille Ortiz M.D. SHARATH/yarelis Electronically signed by Michelle [facility] Conversion Recruiting Assistant Cerner at 07/15/2022 11:07 AM CDT documented in this encounter Plan of Treatment Not on file documented as of this encounter Visit Diagnoses Not on filedocumented in this encounter
--- OUTSIDE RECORDS SUMMARY | 2024-12-15 12:34 | XMS_ITS | Encounter Summary ---
Author Organization [employer] ([place], [place], [place], [place]) Address [address] [place] [address] Care Team Providers Care Polysomnography Technician Name Role Phone Unavailable Primary Care Provider Unavailabl e Encounter Details Date Type Department Care Team (Late st Contact Info) Description 2018 Transcribed Document [facility] [place] [facility] [place] [address] ProviderAntonino MD [facility] [place] [address] Social History Tobacco Use Types Packs/Day Years Used Date Smoking Tobacco: Never Assessed Sex and Gender Information Value Date Recorded Sex Assigned at Not on file Legal Sex Male 2:44 PM CDT Gender Identity Not on file Sexual Orientation Not on file documented as of this encounter Miscellaneous Notes * Cerner Conversion Note - Antonino ProviderMD - 2018 4:32 PM CDT Patient: LUCINDA GONGORA Age: 63 Years Sex: Male : 1955 DATE OF SERVICE: 12/04/2018. CHIEF COMPLAINT: Low back pain, bilateral hip pain. HISTORY OF PRESENT ILLNESS: The patient is a 62 year old male who returns to the clinic today with a 15 year history significant for low back pain as well as leg pain. He is status post spinal cord stimulator implantation, [employer] and is here today to undergo reprogramming of the spinal cord stimulator secondary to the device is not working as well as it had for him in the past. His pain level today is 7/10 on the Numerical Pain Scale Rating. His pain is worse with standing and walking for long durations of time and it is improved with resting. He does report 90% pain relief at this time with gabapentin 800 mg. t.i.d., Percocet 10/325 mg. q.i.d., Robaxin 750 mg. q.i.d. Nurse intake was reviewed. On today's visit this individual is currently 6'0 and weighs 252 lbs. HISTORY: ALLERGIES TO MEDICATION: BACTRIM, CIPROFLOXACIN, SULFA. SOCIAL HISTORY: Marital status: . Current work status: Not listed. Current tobacco use: Denied. Illicit drug use: Denied. Alcohol use: Denied. Caffeine use: Daily PAST MEDICAL HISTORY: Includes osteoarthritis, asthma, hypertension. PAST SURGICAL HISTORY: Includes eye surgery, spinal surgery lumbar spine, spinal surgery cervical spine. PAST FAMILY HISTORY: Includes history of Type 2 diabetes in his family. REVIEW OF SYSTEMS: The patient's Ten System Review of Systems was reviewed and on today's visit this individual complains of the following: General: Fatigue. Respiratory: Shortness of breath, wheezing, asthma. Neurological: Negative. Gastrointestinal: Acid reflux. Musculoskeletal: Joint pain and stiffness, neck pain, back pain, muscle weakness, muscle aches and pains. Cardiovascular: Positive for leg pain with walking. Psychiatric: Negative. HEENT: Negative. Endocrine: Negative. Hematology: Negative. Skin: Negative. Genitourinary: Negative. All other systems reviewed were found to be negative. PHYSICAL EXAMINATION: Vital signs reviewed today. Constitutional: Conversant, well-nourished. Neuropsychiatric: The patient is alert and oriented to self, time, and place today. The patient has normal mood and affect at today's visit and there is minimal evidence of depression on the depression questionnaire completed today. Physical examination reveals identifiable trigger points involving the patient's left buttock region and primarily the left gluteus medius muscle with evidence of banding with the palpation. Physical examination was deferred. DIAGNOSTIC STUDIES: Not present. MEDICAL DECISION MAKING: Stable. ASSESSMENT: 1. Chronic pain syndrome. 2. Lumbar spondylosis. 3. Lumbar facet arthropathy. 4. Lumbar degenerative disc disease. 5. Myositis myalgia. 6. Lumbar radiculitis, status post spinal cord stimulator implantation reprogramming successful. PROCEDURE/TEST ORDERED: Not present. CURRENT PLAN: [employer] was able to undergo reprogramming of the spinal cord stimulator which was much more pleasurable for the patient at today's visit. I am going to maintain this individual on his current medication regimen from our facility at this time. I will schedule him for trigger point injections to be done on the patient's left gluteus medius muscle. The patient will return to the clinic in two months for a follow-up appointment. DARYN report was appropriate upon review today. Urine Tox. Screen done on 08/10/2018 was appropriate. DEVI Jovel:[email or web address] Electronically signed by Michelle [facility] Conversion Chef Under Cerner at 07/15/2022 11:23 AM CDT documented in this encounter Plan of Treatment Not on file documented as of this encounter Visit Diagnoses Not on filedocumented in this encounter
--- OUTSIDE RECORDS SUMMARY | 2024-12-15 12:34 | XMS_ITS | Encounter Summary ---
Author Organization [employer] ([place], [place], [place], [place]) Address [address] [place] [address] Care Team Providers Care Electronics Engineering Professor Name Role Phone Unavailable Primary Care Provider Unavailabl e Encounter Details Date Type Department Care Team (Late st Contact Info) Description 10/01/2019 Transcribed Document [facility] [place] [facility] [place] [address] ProviderAntonino MD [address] [place] [id number] Social History Tobacco Use Types Packs/Day Years Used Date Smoking Tobacco: Never Assessed Sex and Gender Information Value Date Recorded Sex Assigned at Not on file Legal Sex Male 2:44 PM CDT Gender Identity Not on file Sexual Orientation Not on file documented as of this encounter Miscellaneous Notes * Cerner Conversion Note - Antonino ProviderMD - 10/01/2019 4:01 PM CDT Patient: LUCINDA GONGORA Age: 63 Years Sex: Male : 1955 FOLLOW-UP DATE OF SERVICE: 09/14/2019 CHIEF COMPLAINT: Back pain. HISTORY OF PRESENT ILLNESS: The patient is a 63 y/o male who returns to the clinic for follow-up on his 25 year history of low back pain that goes to his bilateral legs. He rates the pain as 5/10 on the pain scale. Quality is aching, radiating, numbness, sharp and constant. He gets 50% relief with his current medication. He has increased pain with walking, lifting, standing and decreased pain with lying down and medication. Fall risk info sheet has been provided. SOCIAL HISTORY: Allergies: Sulfa drugs and Cipro. Marital status: The patient is single. Current work status: Not answered. Illicit drug use: Denies. Alcohol use: Denies. Current tobacco use: Denies. Caffeine use: Not answered. Past Medical History: Asthma. Heartburn Gastroesophageal reflux disease. High blood pressure Past Surgical History: Eyes Spinal surgery of back Spinal surgery of neck Past Family History: Rheumatoid arthritis Diabetes Acid reflux REVIEW OF SYSTEMS: Complete ten system review was performed and noted to be positive for the following: General: Negative. Respiratory: Wheezing, asthma. . Neurological: Negative. Gastrointestinal: Acid reflux Musculoskeletal: Back pain, muscle weakness, muscle aches and pains. Cardiovascular: Leg pain with walking. Psychiatric: Negative. HEENT: Negative. Endocrine: Negative. Hematology: Negative. VITAL SIGNS: Vital signs are reviewed. BP 166/109, heart rate 107, respiratory rate 16, O2 SATs 96%, height 6???0?? , weight 300 lbs PHYSICAL EXAMINATION: Constitutional: The patient is freely conversant, no acute distress. Integumentary: Deferred. HEENT: Deferred. Neck: Deferred. Chest and Lung: Deferred. Cardiovascular: Deferred. Abdomen: Deferred. Peripheral Vascular: Deferred Neurologic: Deferred. Psychiatric: Alert and oriented x 3 with normal mood and affect. He scored a 3 on the depression questionnaire. His gait is antalgic. He uses a cane. Musculoskeletal: Deferred. Established patient exam is deferred. DIAGNOSTIC STUDIES: Not present MEDICAL DECISION MAKING: The patient's DARYN has been reviewed and is appropriate. Patient's medications are reviewed and are listed in the patient's file. ASSESSMENT: Stable. 1. Chronic pain syndrome. 2. Lumbar degenerative disc disease. 3. Lumbar spondylosis. 4. Myositis and myalgia. PROCEDURE/TEST ORDERED: Not present. CURRENT PLAN: I am going to continue Mr. Gongora on his current medications of Percocet 10 mg q 6 h, Gabapentin 800 mg q 8 h, Robaxin 750 mg q 6 h, MS Contin 15 mg q h.s. He denies any side effects. He is in agreement with the above plan. We will see him back in follow-up in two months. Mireille Ortiz M.D. SHARATH/yarelis Electronically signed by Estrella Martinez Conversion Landing Support Specialist Cerner at 07/15/2022 10:52 AM CDT documented in this encounter Plan of Treatment Not on file documented as of this encounter Visit Diagnoses Not on filedocumented in this encounter
--- OUTSIDE RECORDS SUMMARY | 2024-12-15 12:34 | XMS_ITS | Encounter Summary ---
Author Organization Healthcare Address [address] [place] [address] Care Team Providers Care Oil Refinery Process Technician Name Role Phone Yon Merlos APRN Primary Care Provider Ebonie De La Garza APRN Primary Care Provider [phone] Jahaira Ocampo MD Primary Care Provider [phone] Skip Samuels MD Primary Care Provider [phone] Reason for Visit * Reason Comments Med Refill Encounter Details Date Type Department Care Team (Late st Contact Info) Description 10/05/2022 Refill [facility] Family and Community Medicine [address], [address] [place] [address] Yon Merlos APRN [address] [place] [address] Exacerbation of asthma, unspecified asthma [...] on file documented as of this encounter Plan of Treatment Upcoming Encounters Date Type Department Care Team (Late st Contact Info) Description 01/10/2025 9:40 AM EDT Office Visit [facility] Orthopaedic Surgery & Sports Medicine [address], [address] [place] [address] Nilson Walker MD [address] [place] [address] documented as of this encounter Visit Diagnoses Diagnosis Exacerbation of asthma, unspecified asthma severity, unspecified whether persistent documented in this encounter Additional Health Concerns Assessment Noted Time A fall risk assessment has been complete d for the patient 10/02/2022 10:36 AM EDT A Body Mass Index follow-up plan has been documented for the patient 10/02/2022 9:18 PM EDT documented as of this encounter Care Teams Oil Refinery Process Technician Relationship Specialty Start Date End Date Yon Merlos APRN [address] [facility] [address] [place] [address] PCP - General Family Medicine 08/02/21 02/25/23 Ebonie De La Garza APRN [address] [facility] [address] [place], [place] [id number] PCP - General Family Medicine 02/26/23 08/04/23 Jahaira Ocampo MD [address] [place] [address] [id number] PCP - General Family Medicine 08/05/23 06/21/24 Skip Samuels MD [address] [place] [address] [id number] PCP - General 06/22/24 documented as of this encounter
[2024-12-15 13:13] VITALS: BP 103/66; PULSE 117; RESP 20; TEMP 36.9; O2SAT 98
--- OUTSIDE RECORDS SUMMARY | 2024-12-15 13:33 | XMS_ITS | CCD ---
Author Organization Unknown Care Team Providers Care Automation Design Engineer Name Role Phone Unavailable Primary Care Provider Unavailabl e Unavailable Chronic Care Management Unavaila ble Summary Purpose DataExchange Insurance Providers Payer name Policy type / Coverage type Covered alliance party ID Effective Begin Date Effective End Date [facility] [place] [id number] Unknown Unknown Family History Family History data not found Medication Administered No Medication Administered data Reason For Visit No Reason For Visit data Medical Equipment No Medical Equipment data Advance Directives No Advance Directive data
--- OUTSIDE RECORDS SUMMARY | 2024-12-15 13:34 | XMS_ITS | CCD ---
Author Organization Unknown Care Team Providers Care Student Records Specialist Name Role Phone Unavailable Primary Care Provider Unavailabl e Unavailable Chronic Care Management Unavaila ble Summary Purpose [employer] Insurance Providers Payer name Policy type / Coverage type Covered alliance party ID Effective Begin Date Effective End Date [facility] [id number] Unknown Unknown Family History Family History data not found Medication Administered No Medication Administered data Reason For Visit No Reason For Visit data Medical Equipment No Medical Equipment data Advance Directives No Advance Directive data
== END 2024-12-15 13:13 | disposition home or self-care (01) ==
PROVIDERS: Emergency Provider Student in an Organized Health Care Education/Training Program; PCP Family Medicine
DX: M25.511 Pain in right shoulder (principal); M25.512 Pain in left shoulder; M54.50 Low back pain, unspecified; G89.29 Other chronic pain
CPT/HCPCS: 99282; 99283